=== PATIENT | female | born 1955 | race Caucasian/White ===

== ENCOUNTER 2017-09-29 11:12 | Emergency (ER) | payer SELFPAY ==
[~2017-09-29] VITALS: Ht 160 cm; Wt 72.7 kg
[2017-09-29 11:20] VITALS: BP 128/59; TEMP 97.9
[2017-09-29] MEDS ORDERED: ELIQUIS 5MG PO (11:45)
[2017-09-29] MEDS ORDERED: TOPROL XL 25MG25 MG PO (11:45)
[2017-09-29] MEDS ORDERED: IMITREX50 MG PO (11:46)
[2017-09-29] MEDS ORDERED: ATIVAN 1MG T1 MG/TAB PO (11:47)
[2017-09-29 12:28] LABS: BASO # 0.1 (0.0-0.2); BASO % 0.5 % (0.0-2.0); EOS # 0.3 (0.0-0.7); EOS % 2.7 % (0-4.0); GRAN # 7.9 (1.4-6.5); GRAN % 70.5 % (42.2-75.2); HEMATOCRIT 42.3 % (37.0-47.0); HEMOGLOBIN 14.3 g/dl (12.5-16.0); LYMPH # 2.3 (1.2-3.4); LYMPH % 20.5 % (20.0-51.0); MEAN CELL VOLUME 91 fl (80.0-100.0); MEAN CORPUSCULAR HEMOGLOBIN 31 pg (27.0-31.0); MEAN CORPUSCULAR HGB CONC 34 g/dl (33.0-37.0); MEAN PLATELET VOLUME 10.5 fl (7.4-10.4); MONO # 0.6 (0.1-0.6); MONO % 5.5 % (1.7-9.3); PLATELET COUNT 314 K/mm3 (130-400); RED BLOOD COUNT 4.63 M/mm3 (4.10-5.30); REDCELL DISTRIBUTION WIDTH-CV 12.3 % (11.5-14.5)
[2017-09-29 12:48] LABS: ALANINE AMINOTRANSFERASE 39 U/L (9-52); ALBUMIN 4.6 gm/dL (3.5-5.0); ALKALINE PHOSPHATASE 108 U/L (50-136); ANION GAP 9 mmol/L (7-16); AST,SGOT 32 U/L (15-37); BILIRUBIN,TOTAL 0.5 mg/dL (0.0-1.0); BLOOD UREA NITROGEN 22 mg/dL (7-17); C-REACTIVE PROTEIN < 0.5 mg/dL (0.0-0.9); CALCIUM 9.8 mg/dL (8.4-10.2); CARBON DIOXIDE 22 mmol/L (22-30); CHLORIDE 111 mmol/L (98-107); CREATININE, serum 0.93 mg/dL (0.52-1.25); ERYTHROCYTE SEDIMENTATION RATE 2 mm/hr (0-30); GLUCOSE 104 mg/dL (74-106); SODIUM 142 mmol/L (137-145); TOTAL PROTEIN 7.4 gm/dL (6.4-8.2)
[2017-09-29 14:13] VITALS: PULSE 78
== END 2017-09-29 14:14 | disposition home or self-care (01) ==
LOC: COL.ER 11:12
PROVIDERS: Emergency Medicine
DX: G51.0 Bell's palsy (principal); I48.91 Unspecified atrial fibrillation; G43.909 Migraine, unspecified, not intractable, without status migrainosus; M79.7 Fibromyalgia; F17.210 Nicotine dependence, cigarettes, uncomplicated

== ENCOUNTER 2020-05-31 12:33 | Emergency (ER) | payer BC ==
[~2020-05-31] VITALS: Ht 160 cm; Wt 68.2 kg
[~2020-05-31 12:33] MED LIST: ATIVAN 1MG T1 MG/TAB PO; ELIQUIS 5MG PO; IMITREX50 MG PO; TOPROL XL 25MG25 MG PO
[2020-05-31 12:37] VITALS: BP 133/81; TEMP 98.5
[2020-05-31] MEDS ORDERED: CRUTCHES MC (13:10)
[2020-05-31] MEDS ORDERED: CEPHALEXIN500 M1 PO (13:10)
[2020-05-31 14:02] VITALS: PULSE 68
== END 2020-05-31 14:02 | disposition home or self-care (01) ==
LOC: COL.ER 12:33
DX: S91.012A Laceration without foreign body, left ankle, initial encounter (principal); W18.11XA Fall from or off toilet without subsequent striking against object, initial encounter; Y92.009 Unspecified place in unspecified non-institutional (private) residence as the place of occurrence of the external cause

== ENCOUNTER → 2020-06-15 | Outpatient (CLI) | payer BC ==
[~2020-06-15] MED LIST changes: +CEPHALEXIN500 M1 PO; +CRUTCHES MC
[2020-06-15 14:36] VITALS: BP 144/65; PULSE 61; TEMP 96.6
== END ==
LOC: COL.ER 14:24
DX: Z48.02 Encounter for removal of sutures (principal)